=== PATIENT | female | born 2000 | race American Indian/Alaskan Native ===

== ENCOUNTER 2020-05-01 13:50 | Emergency (ER) | payer SELFPAY ==
[2020-05-01 14:24] VITALS: BP 104/49
[2020-05-01] MEDS ORDERED: TETRACAINE 0.5% OPHTH SOLN 4ML OU ONE (14:34)
[2020-05-01] MEDS ORDERED: BALANCED SALT IRRIG (BSS) OPHTH SOLN 15 ML OU ONE (14:34)
[2020-05-01] MEDS ORDERED: FLUORESCEIN 1 MG STRIP OP ONE ×2 (14:34→17:02)
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
[2020-05-01] MEDS ORDERED: BALANCED SALT IRRIG (BSS) OPHTH SOLN 15 ML ONE (17:01)
[2020-05-01] MEDS ORDERED: TETRACAINE 0.5% OPHTH SOLN 4ML ONE (17:02)
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
== END 2020-05-01 17:46 | disposition home or self-care (01) ==
LOC: ED 13:50
DX: S05.12XA Contusion of eyeball and orbital tissues, left eye, initial encounter (principal); S05.00XA Injury of conjunctiva and corneal abrasion without foreign body, unspecified eye, initial encounter; Z79.899 Other long term (current) drug therapy; Y08.89XA Assault by other specified means, initial encounter; Y93.89 Activity, other specified; Y92.009 Unspecified place in unspecified non-institutional (private) residence as the place of occurrence of the external cause; Y99.8 Other external cause status
CPT/HCPCS: 99283